=== PATIENT | female | born 2005 | race Caucasian/White ===

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

== ENCOUNTER 2023-03-14 14:04 | Emergency (ER) | payer BC, MEDICAID ==
[~2023-03-14] VITALS: Ht 165.1 cm; Wt 79.1 kg
[2023-03-14] MEDS ORDERED: NS IV 1000 ML 1,000 ML IV STA (14:21)
--- NOTE | 2023-03-14 14:21 | ED General ---
General Chief Complaint: Fever-Adult/Adol Stated Complaint: FEVER; BACK PAIN History of Present Illness Date Seen by Provider: Mar 14, 2023 Time Seen by Provider: 14:21 Initial Comments 17-year-old presents 7 days from a vaginal delivery. Patient reports that since the morning she has had a fever of around 103. That since around 3 AM she is had pain especially in her back. She does report that she has been having some painful urination and discoloration of her urine. She complains of generalized malaise and discomfort. She denies any cough, shortness of breath. Allergies and Home Medications Allergies Coded Allergies: No Known Drug Allergies (Unverified , 07/27/22) Patient Home Medication List Home Medication List Reviewed: Yes Cephalexin (Cephalexin) 500 Mg Tablet, 500 MG PO QID Prescribed by: ANGELA GRIDER on 03/14/23 9521 Review of Systems Review of Systems Constitutional: fever, malaise Respiratory: No cough, No short of breath Cardiovascular: No chest pain Gastrointestinal: No abdominal pain, No nausea, No vomiting Genitourinary: see HPI : No Musculoskeletal: back pain Skin: no symptoms reported Past Lclvaif-Wbsnwb-Cfoamz Hx Patient Social History Tobacco Use?: No Substance use?: No Alcohol Use?: No Pt feels they are or have been: No Physical Exam Vital Signs Vital Signs - First Documented 03/14/23 14:10 Temp 38.2 Pulse 125 Resp 18 B/P (MAP) 126/88 (101) Pulse Ox 98 O2 Delivery Room Air Capillary Refill : Height, Weight, BMI Height: '" Weight: lbs. oz. kg; BMI Method: General Appearance: Other (Uncomfortable) Respiratory: Lungs Clear, Normal Breath Sounds Cardiovascular: Regular Rate, Rhythm, No Edema Gastrointestinal: Soft; No Guarding, No Tenderness Back: CVA Tenderness (R) Extremity: Normal Capillary Refill Neurologic/Psychiatric: Alert, Oriented x3, No Motor/Sensory Deficits, Normal Mood/Affect, athletic coordinator II-XII Norm as Tested Skin: Normal Color, Warm/Dry Focused Exam Lactate Level 03/14/23 14:20: Lactic Acid Level 0.84 Lactic Acid Level Laboratory Tests Test 03/14/23 14:20 Lactic Acid Level 0.84 MMOL/L (0.50-2.00) Progress/Results/Core Measures Suspected Sepsis SIRS Temperature: Pulse: Respiratory Rate: Laboratory Tests 03/14/23 14:20: White Blood Count 10.3 Blood Pressure / Mean: 03/14/23 14:20: Lactic Acid Level 0.84 Laboratory Tests 03/14/23 14:20: Creatinine 0.94, Platelet Count 275, Total Bilirubin 0.5 Results/Orders Lab Results Laboratory Tests Test 03/14/23 14:15 03/14/23 14:20 Range/Units Urine Color DARK YELLOW Urine Clarity TURBID Urine pH 6.5 5-9 Urine Specific [place] 1.015 L 1.016-1.022 Urine Protein 2+ H NEGATIVE Urine Glucose (UA) NEGATIVE NEGATIVE Urine Ketones TRACE H NEGATIVE Urine Nitrite POSITIVE H NEGATIVE Urine Bilirubin 1+ H NEGATIVE Urine Urobilinogen 1.0 < = 1.0 MG/DL Urine Leukocyte Esterase 2+ H NEGATIVE Urine RBC (Auto) 3+ H NEGATIVE Urine RBC TNTC H /HPF Urine WBC TNTC H /HPF Urine Crystals NONE /LPF Urine Bacteria LARGE H /HPF Urine Casts NONE /LPF Urine Mucus NEGATIVE /LPF Urine Culture Indicated YES White Blood Count 10.3 4.3-11.0 10^3/uL Red Blood Count 4.47 3.80-5.11 10^6/uL Hemoglobin 11.7 11.5-16.0 g/dL Hematocrit 36 35-52 % Mean Corpuscular Volume 81 80-99 fL Mean Corpuscular Hemoglobin 26 25-34 pg Mean Corpuscular Hemoglobin Concent 32 32-36 g/dL Red Cell Distribution Width 14.3 10.0-14.5 % Platelet Count 275 130-400 10^3/uL Mean Platelet Volume 10.2 9.0-12.2 fL Immature Granulocyte % (Auto) 0 % Neutrophils (%) (Auto) 90 H 42-75 % Lymphocytes (%) (Auto) 5 L 12-44 % Monocytes (%) (Auto) 4 0-12 % Eosinophils (%) (Auto) 0 0-10 % Basophils (%) (Auto) 0 0-10 % Neutrophils # (Auto) 9.3 H 1.8-7.8 10^3/uL Lymphocytes # (Auto) 0.6 L 1.0-4.0 10^3/uL Monocytes # (Auto) 0.4 0.0-1.0 10^3/uL Eosinophils # (Auto) 0.0 0.0-0.3 10^3/uL Basophils # (Auto) 0.0 0.0-0.1 10^3/uL Immature Granulocyte # (Auto) 0.0 0.0-0.1 10^3/uL Neutrophils % (Manual) 86 % Lymphocytes % (Manual) 4 % Monocytes % (Manual) 10 % Sodium Level 136 135-145 MMOL/L Potassium Level 3.6 3.6-5.0 MMOL/L Chloride Level 100 98-107 MMOL/L Carbon Dioxide Level 20 L 21-32 MMOL/L Anion Gap 16 H 5-14 MMOL/L Blood Urea Nitrogen 5 L 7-18 MG/DL Creatinine 0.94 0.60-1.30 MG/DL Estimat Glomerular Filtration Rate 90 BUN/Creatinine Ratio 5 Glucose Level 97 70-105 MG/DL Lactic Acid Level 0.84 0.50-2.00 MMOL/L Calcium Level 9.6 8.5-10.1 MG/DL Corrected Calcium 9.4 8.5-10.1 MG/DL Total Bilirubin 0.5 0.1-1.0 MG/DL Aspartate Amino Transf (AST/SGOT) 15 5-34 U/L Alanine Aminotransferase (ALT/SGPT) 12 0-55 U/L Alkaline Phosphatase 115 40-136 U/L Total Protein 7.2 6.4-8.2 GM/DL Albumin 4.2 3.2-4.5 GM/DL Influenza Type A (RT-PCR) Not Detected Not Detecte Influenza Type B (RT-PCR) Not Detected Not Detecte SARS-CoV-2 RNA (RT-PCR) Not Detected Not Detecte My Orders Orders - GRIDER,ANGELA L DO Cbc With Automated Diff (03/14/23 14:21) Comprehensive Metabolic Panel (03/14/23 14:21) Lactic Acid Analyzer (03/14/23 14:21) Ua Culture If Indicated (03/14/23 14:21) Ns Iv 1000 Ml (Ns Iv 1000 Ml) (03/14/23 14:21) Blood Culture (03/14/23 14:22) Influenza A And B By Pcr (03/14/23 14:22) Covid 19 Inhouse Test (03/14/23 14:22) Ketorolac Injection (Ketorolac Injection (03/14/23 14:30) Manual Differential (03/14/23 14:20) Urine Culture (03/14/23 14:15) Ceftriaxone Iv/Im (Ceftriaxone Iv/Im) (03/14/23 14:45) Ct Abdomen/Pelvis W (03/14/23 15:04) Iohexol Injection (Omnipaque 350 Mg/Ml 1 (03/14/23 15:15) Received Contrast (Hold Metformin- Contr (03/14/23 15:15) Ns (Ivpb) 100 Ml (Sodium Chloride 0.9% 1 (03/14/23 15:15) Medications Given in ED Current Medications Medications Dose Ordered Sig/Kristian Route Start Time Stop Time Status Last Admin Dose Admin Ceftriaxone Sodium 1000 mg/ Sodium Chloride 50 ml @ 100 mls/hr ONCE ONCE IV 03/14/23 14:45 03/14/23 15:14 DC 03/14/23 15:08 100 MLS/HR Iohexol 100 ml ONCE ONCE IV 03/14/23 15:15 03/14/23 15:16 DC 03/14/23 15:24 75 ML Sodium Chloride 100 ml ONCE ONCE IV 03/14/23 15:15 03/14/23 15:16 DC 03/14/23 15:23 100 ML Vital Signs/I&O 03/14/23 03/14/23 14:10 15:52 Temp 38.2 38.2 Pulse 125 125 Resp 18 18 B/P (MAP) 126/88 (101) 126/88 Pulse Ox 98 98 O2 Delivery Room Air Room Air Capillary Refill : Progress Note : Progress Note Patient's diagnostic studies were ordered reviewed and interpreted by me. Patient had a urine that was concerning for urinary tract infection but no other significant acute findings on her labs. Due to her recent history and significant pain about her back and fever I did obtain a CT abdomen pelvis to evaluate for pyelonephritis or abdominal abscess. CT abdomen pelvis was negative shows no acute findings. Patient was given IV Rocephin in the ER. I will start her on Keflex which is safe while she is breast-feeding. I did recommend she follow-up with her primary care provider early next week for recheck of her urine. She should return to the ER with any worsening symptoms or concerns. She was stable upon discharge. Diagnostic Imaging Diagonstic Imaging: CT Plain Films/CT/US/NM/MRI: abdomen, pelvis Comments Date of Exam:03/14/23 CT ABDOMEN/PELVIS W CT ABDOMEN/PELVIS W TECHNIQUE: Multiple contiguous axial images were obtained through the abdomen and pelvis after administration of intravenous contrast. All CT scans use one or more of the following dose optimizing techniques: automated exposure control, MA and/or KvP adjustment based on patient size and exam type or iterative reconstruction. INDICATION: Pyelonephritis. COMPARISON: Pyelonephritis. Recent status post vaginal . FINDINGS: Lower chest: The lung bases are clear. No pericardial or pleural effusion. Peritoneum: No free intraperitoneal air or fluid. Liver and biliary system: The liver is normal. Gallbladder is normal. No biliary duct dilatation. Spleen and Pancreas: Spleen is normal. The pancreas enhances normally without mass lesion or peripancreatic inflammatory changes. Adrenals: Normal. tract: The kidneys enhance normally without suspicious mass or obstruction. Punctate nonobstructing 2 mm stone in the lower pole left kidney. Urinary bladder is distended without wall thickening. Uterus is enlarged compatible with state. No mineralized retained products of conception. A 1.3 x 1.2 cm Bartholin gland cyst is noted on the left. GI tract: Stomach is decompressed. No bowel obstruction. No pericolonic inflammatory changes. Normal appendix. Vasculature and Lymph nodes: Normal caliber aorta. No abdominal or pelvic lymphadenopathy. Musculoskeletal: No concerning osseous lesion. IMPRESSION: 1. uterus has no mineralized retained products of conception. Please note that ultrasound is the modality of choice to evaluate for retained products of conception. 2. No obstructive uropathy. Reviewed: Reviewed by Me, Reviewed/Discussed Departure Impression Primary Impression: Acute cystitis with hematuria Additional Impression: acute cystitis Disposition: HOME, SELF-CARE Condition: Stable Departure-Patient Inst. Referrals: RACHEL MORRISSEY MD (PCP/Family) Primary Care Physician Patient Instructions: Acute Cystitis (DC) Add. Discharge Instructions: Tylenol or ibuprofen as needed for fever, chills and body aches. Please follow- up with your primary care provider on Friday of next week for recheck of your urine. Return to the ER as needed All discharge instructions reviewed with patient and/or family. Voiced understanding. Scripts Cephalexin (Cephalexin) 500 Mg Tablet 500 MG PO QID, #20 TAB 0 Refills Prov: ANGELA GRIDER DO 03/14/23 ANGELA GRIDER DO Mar 14, 2023 14:21
[2023-03-14] MEDS ORDERED: KETOROLAC INJ 30 MG/ML VIAL IVP STA (14:30)
[2023-03-14 14:33] LABS: BASOPHILS % (AUTO) 0 % (0-10); EOSINOPHILS % (AUTO) 0 % (0-10); HEMATOCRIT 36 % (35-52); HEMOGLOBIN 11.7 g/dL (11.5-16.0); LYMPHOCYTES # (AUTO) 0.6 10^3/uL (1.0-4.0); LYMPHOCYTES % (AUTO) 5 % (12-44); MEAN CORPUSCULAR HEMOGLOBIN 26 pg (25-34); MEAN CORPUSCULAR HGB CONC 32 g/dL (32-36); MEAN CORPUSCULAR VOLUME 81 fL (80-99); MEAN PLATELET VOLUME 10.2 fL (9.0-12.2); MONOCYTES # (AUTO) 0.4 10^3/uL (0.0-1.0); MONOCYTES % (AUTO) 4 % (0-12); NEUTROPHILS # (AUTO) 9.3 10^3/uL (1.8-7.8); NEUTROPHILS % (AUTO) 90 % (42-75); PLATELET COUNT 275 10^3/uL (130-400); WHITE BLOOD COUNT 10.3 10^3/uL (4.3-11.0)
[2023-03-14 14:34] LABS: GLUCOSE, URINE (UA) NEGATIVE (NEGATIVE); KETONES,URINE TRACE (NEGATIVE); LEUKOCYTE ESTERASE ,URINE 2+ (NEGATIVE); NITRITE,URINE POSITIVE (NEGATIVE); PH,URINE 6.5 (5-9); PROTEIN,URINE 2+ (NEGATIVE)
[2023-03-14 14:39] LABS: BACTERIA,URINE LARGE /HPF; BILIRUBIN,URINE 1+ (NEGATIVE); CLARITY,URINE TURBID; COLOR,URINE DARK YELLOW; RBC,URINE TNTC /HPF; WBC,URINE TNTC /HPF
[2023-03-14] MEDS ORDERED: cefTRIAXone IV/IM 1,000 MG in NS (IVPB) 50 ML 50 ML IV ONE (14:45)
[2023-03-14 14:54] LABS: ALBUMIN 4.2 GM/DL (3.2-4.5); BILIRUBIN,TOTAL 0.5 MG/DL (0.1-1.0); CALCIUM 9.6 MG/DL (8.5-10.1); CREATININE SERUM 0.94 MG/DL (0.60-1.30); POTASSIUM 3.6 MMOL/L (3.6-5.0); TOTAL PROTEIN 7.2 GM/DL (6.4-8.2)
[2023-03-14 15:00] LABS: LYMPHOCYTES % (MANUAL) 4 %; MONOCYTES % (MANUAL) 10 %; NEUTROPHILS % (MANUAL) 86 %
[2023-03-14] MEDS ORDERED: IOHEXOL 350 MG/ML 100 ML (OMNIPAQUE 350) VIAL IV ONE (15:15)
[2023-03-14] MEDS ORDERED: HOLD METFORMIN - RECEIVED CONTRAST 20 ML VIAL IV SCH (15:15)
[2023-03-14] MEDS ORDERED: NS 100 ML (IVPB) BAG IV ONE (15:15)
--- NOTE | 2023-03-14 15:40 | Diagnostic Imaging Report ---
CT ABDOMEN/PELVIS W TECHNIQUE: Multiple contiguous axial images were obtained through the abdomen and pelvis after administration of intravenous contrast. All CT scans use one or more of the following dose optimizing techniques: automated exposure control, MA and/or KvP adjustment based on patient size and exam type or iterative reconstruction. INDICATION: Pyelonephritis. COMPARISON: Pyelonephritis. Recent status post vaginal . FINDINGS: Lower chest: The lung bases are clear. No pericardial or pleural effusion. Peritoneum: No free intraperitoneal air or fluid. Liver and biliary system: The liver is normal. Gallbladder is normal. No biliary duct dilatation. Spleen and Pancreas: Spleen is normal. The pancreas enhances normally without mass lesion or peripancreatic inflammatory changes. Adrenals: Normal. tract: The kidneys enhance normally without suspicious mass or obstruction. Punctate nonobstructing 2 mm stone in the lower pole left kidney. Urinary bladder is distended without wall thickening. Uterus is enlarged compatible with state. No mineralized retained products of conception. A 1.3 x 1.2 cm Bartholin gland cyst is noted on the left. GI tract: Stomach is decompressed. No bowel obstruction. No pericolonic inflammatory changes. Normal appendix. Vasculature and Lymph nodes: Normal caliber aorta. No abdominal or pelvic lymphadenopathy. Musculoskeletal: No concerning osseous lesion. IMPRESSION: 1. uterus has no mineralized retained products of conception. Please note that ultrasound is the modality of choice to evaluate for retained products of conception. 2. No obstructive uropathy. Dictated by: Dictated on workstation # [id number]
[2023-03-14] MEDS ORDERED: CEPH500T PO (15:51)
[2023-03-14 15:52] VITALS: BP 126/88
== END 2023-03-14 15:52 | disposition home or self-care (01) ==
LOC: EDUNIT# 14:04 → ER FS 14:05
DX: O86.22 Infection of bladder following delivery (principal); N30.01 Acute cystitis with hematuria; Z20.822 Contact with and (suspected) exposure to COVID-19
CPT/HCPCS: 36415; 74177; 80053; 81000; 83605; 85007; 85027; 87040; 87088; 87636; Q9967